=== PATIENT | male | born 1960 | race Caucasian/White ===

== ENCOUNTER 2018-10-06 10:23 | Day surgery (SDC) | payer OTHER ==
[~2018-10-06] VITALS: Ht 190.5 cm; Wt 115.7 kg
[2018-10-06] MEDS ORDERED: LIDOCAINE 2% 1000 MG/50 ML VIAL INJ ONE (11:27)
[2018-10-06] MEDS ORDERED: TRI48 PO (12:16)
[2018-10-06] MEDS ORDERED: ICOS0.5C PO (12:16)
[2018-10-06] MEDS ORDERED: DULO30EC PO (12:16)
[2018-10-06] MEDS ORDERED: TRAM50TA1 PO (12:16)
[2018-10-06] MEDS ORDERED: OMEP20TC11 PO (12:16)
[2018-10-06] MEDS ORDERED: LYR75 PO (12:16)
== END 2018-10-06 13:00 | disposition home or self-care (01) ==
LOC: MMU 10:23 → MDS 10:23
PROVIDERS: ATTEND Internal Medicine Gastroenterology
DX: K76.0 Fatty (change of) liver, not elsewhere classified (principal); E66.9 Obesity, unspecified; Z98.890 Other specified postprocedural states; Z87.891 Personal history of nicotine dependence; Z76.0 Encounter for issue of repeat prescription; Z68.33 Body mass index [BMI] 33.0-33.9, adult; Z79.899 Other long term (current) drug therapy
CPT/HCPCS: 47000; 76942; 88307; 88313; J2001; Q0092